=== PATIENT | male | born 2005 | race Caucasian/White ===

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

== ENCOUNTER 2024-12-04 15:33 | Inpatient (IN) | payer SELFPAY ==
[2024-12-04 16:28] LABS: #Basophils 0.03 10x3/uL (0.0-0.2); #Eosinophils 0.13 10x3/uL (0.0-0.7); #Monocytes 0.48 10x3/uL (0.11-0.59); #Neutrophils 4.88 10x3/uL (1.40-6.50); %Basophils 0.4 % (0.0-1.0); %Eosinophils 1.9 % (0.0-10.0); %Lymphocytes 21.1 % (28.0-48.0); %Monocytes 6.8 % (0.0-4.0); %Neutrophils 69.5 % (31.0-61.0); Hematocrit 46.6 % (42.0-52.0); Hemoglobin 15.4 g/dL (14.0-18.0); Mean Corpuscular Hemoglobin 27.8 pg (25.0-35.0); Mean Corpuscular Volume 84.3 fL (78.0-98.0); Platelet Count 219 10x3/uL (130-400); Red Blood Cell (RBC) Count 5.53 mill/uL (4.00-5.20); White Blood Cell (WBC) Count 7.02 10x3/uL (4.8-10.8)
[2024-12-04 16:50] LABS: ALT (SGPT) 12 U/L (Less than 45); AST (SGOT) 17 U/L (11-34); Albumin 4.3 g/dL (3.1-4.5); Alkaline Phosphatase 57 U/L (50-130); Anion Gap 13 mmol/L (10-20); BUN (Urea Nitrogen) 13 mg/dL (8.9-20.6); Bilirubin, Total 0.6 mg/dL (0.3-1.2); Calc. Creatinine Clearance 0 mL/min (70-130); Calcium 9.2 mg/dL (7.8-10.44); Carbon Dioxide 24 mmol/L (22-29); Chloride 104 mmol/L (98-107); Globulin 2.9 g/dL (2.4-3.5); Glucose 104 mg/dL (70-105); Potassium 4.0 mmol/L (3.5-5.1); Sodium 137 mmol/L (136-145)
[2024-12-04 17:31] LABS: Free T4 (Free Thyroxine) 0.9 ng/dL (0.70-1.48); Thyroid Stimulating Hormone 1.3166 uIU/mL (0.35-4.94)
[2024-12-04] MEDS ORDERED: Melatonin 3 MG TAB PO PRN (18:59)
[2024-12-04 19:10] LABS: Acetaminophen Less than 10 mcg/mL (Less than 10); Magnesium 2.3 mg/dL (1.7-2.2); Salicylate Less than 8.0 mg/dL (Less than 8.0)
[2024-12-04 21:16] VITALS: BMI 29.0
[2024-12-05 04:07] LABS: Anion Gap 15 mmol/L (10-20); BUN (Urea Nitrogen) 12 mg/dL (8.9-20.6); Calc. Creatinine Clearance 180 mL/min (70-130); Calcium 9.1 mg/dL (7.8-10.44); Carbon Dioxide 24 mmol/L (22-29); Chloride 105 mmol/L (98-107); Glucose 87 mg/dL (70-105); Potassium 3.8 mmol/L (3.5-5.1); Sodium 140 mmol/L (136-145)
[2024-12-05] MEDS: Famotidine 20 MG TAB PO SCH (09:15)
[2024-12-05] MEDS: Enoxaparin 40 MG (0.4 mL) SYRINGE SC SCH (09:15)
[2024-12-05] MEDS ORDERED: Heparin 10,000 UNITS/ 10 ML VIAL ONE (11:50)
[2024-12-05] MEDS ORDERED: Isoproterenol 0.2 MG/1 ML AMP ONE (13:39)
[2024-12-05] MEDS ORDERED: Ondansetron PF 4 MG/2 ML Vial ONE (14:47)
[2024-12-05] MEDS ORDERED: Rocuronium Bromide 10 MG/ML (10ML VIAL) ONE ×2 (14:47→16:33)
[2024-12-05] MEDS ORDERED: Etomidate 40 MG (20 mL) VIAL ONE (14:48)
[2024-12-05] MEDS ORDERED: PHENYLEPHRINE-NS 100 MCG/ML 10 ML SYRINGE ONE (14:48)
[2024-12-05] MEDS ORDERED: Lidocaine 1% PF 5 ML VIAL ONE (14:48)
[2024-12-05] MEDS ORDERED: SUGAMMADEX SODIUM 200 MG/2 ML VIAL ONE (17:33)
[2024-12-05] MEDS: Acetaminophen 325 MG TAB PO PRN (20:08)
[2024-12-06 00:05] LABS: Cocaine Metabolite Screen Negative (Negative); THC/Cannabinoid Screen Negative (Negative); Tricyclic Screen Negative (Negative)
[2024-12-06 06:26] LABS: Anion Gap 16 mmol/L (10-20); BUN (Urea Nitrogen) 12 mg/dL (8.9-20.6); Calc. Creatinine Clearance 154 mL/min (70-130); Calcium 9.0 mg/dL (7.8-10.44); Carbon Dioxide 23 mmol/L (22-29); Chloride 104 mmol/L (98-107); Glucose 89 mg/dL (70-105); Magnesium 2.2 mg/dL (1.7-2.2); Potassium 4.0 mmol/L (3.5-5.1); Sodium 139 mmol/L (136-145)
[2024-12-06 08:51] VITALS: BP 131/72; TEMP 98.2
== END 2024-12-06 12:20 | disposition home or self-care (01) | DRG 274 ==
LOC: ERS 15:33 → 2SE 18:15 → OBSVTOIN 12-06 07:53
PROVIDERS: ADMIT Internal Medicine; ATTEND Internal Medicine
PROC: 02583ZZ Destruction of Conduction Mechanism, Percutaneous Approach (ICD-10-PCS; principal; 2024-12-05)
DX: I48.92 Unspecified atrial flutter (principal); F84.0 Autistic disorder; I47.29 Other ventricular tachycardia; I45.6 Pre-excitation syndrome; Z98.890 Other specified postprocedural states
CPT/HCPCS: 36415; 71045; 80048; 80053; 80306; 80307; 83735; 84439; 84443; 84484; 85025; 85347; 85379; 93005; 93306; 93462; 93613; 93621; 93622; 93623; 93653; 93655; 93662; C1730; C1732; C1759; C1760; C1769; C1893; C1894; J1100; J1644; J1650; J2250; J2405; J2720; J3010